=== PATIENT | male | born 1955 | race Caucasian/White ===

== ENCOUNTER 2019-09-18 12:20 | Emergency (ER) | payer BC ==
--- NOTE | 2019-09-18 12:31 | EDM.PDOC ---
ED HPI GENERAL MEDICAL PROBLEM - General Chief Complaint: Head Injury Stated Complaint: LOSS OF CON/ FELL DOWN STEPS Time Seen by Provider: 09/18/19 12:26 Source of Information: Reports: Patient, EMS History Limitations: Reports: No Limitations - History of Present Illness INITIAL COMMENTS - FREE TEXT/NARRATIVE: Patient tripped while walking down stairs at the [employer] [place], he fell forward down @10 steps. Patient was unresponsive for @2 minutes. He complains of mild headache. Denies neck pain, chest pain, shortness of breath, or abdominal pain. Onset: Today Duration: Hour(s): (1) Location: Reports: Head Severity: Mild Head Pain Score (Numeric/FACES): 1 - Related Data Allergies Allergy/AdvReac Type Severity Reaction Status Date / Time No Known Allergies Allergy Verified 09/18/19 12:31 Home Meds: Home Meds NK [No Known Home Meds] 09/18/19 [History] Past Medical History - Past Health History Medical/Surgical History: Denies Medical/Surgical History Social & Family History - Tobacco Use Tobacco Use Within Last Twelve Months: No - Alcohol Use Alcohol Use History: No - Recreational Drug Use Recreational Drug Use: No ED ROS GENERAL - Review of Systems Review Of Systems: Comprehensive ROS is negative, except as noted in HPI. HEENT: Reports: Ear Pain (left (intermittent x 1 month)) ED EXAM, HEAD INJURY - Physical Exam Exam: See Below Exam Limited By: No Limitations General Appearance: Alert, WD/WN, No Apparent Distress Head: Normocephalic, Scalp Swelling (right parietal), Scalp Abrasions (right parietal) Eyes: Bilateral Eye: EOMI, PERRL Ears: Normal External Exam, Normal TMs Nose: Normal Inspection Throat/Mouth: No Airway Compromise Neck: Non-Tender, Full Range of Motion Respiratory: No Respiratory Distress, Lungs Clear, Normal Breath Sounds, Chest Non-Tender Cardiovascular: Regular Rate, Rhythm, No Murmur GI/Abdominal Exam: Soft, Non-Tender, No Distention Back Exam: Full Range of Motion Extremities: Normal Range of Motion Neurologic: No Motor/Sensory Deficits, Alert, Normal Mood/Affect, Oriented x 3 Skin: Other (right parietal scalp) - [place] Coma Score Best Eye Response ([place]): (4) Open Spontaneously Best Verbal Response ([place]): (5) Oriented Best Motor Response (Janee): (6) Obeys Commands Janee Total: 15 Course - Vital Signs Last Recorded V/S: Last Vital Signs Temp 36.7 C 09/18/19 13:02 Pulse 73 09/18/19 12:37 Resp 16 09/18/19 12:37 BP 131/81 09/18/19 12:37 Pulse Ox 95 09/18/19 12:37 - Orders/Labs/Meds Orders: Active Orders 24 hr Category Date Time Status Vaccines to be Administered [RC] PER UNIT ROUTINE Care 09/18/19 12:43 Active Cervical Spine wo Cont [CT] Stat Exams 09/18/19 12:25 Taken Head wo Cont [CT] Stat Exams 09/18/19 12:24 Taken Meds: Medications Discontinued Medications Generic Name Dose Route Start Last Admin Trade Name Freq PRN Reason Stop Dose Admin Diphtheria/Tetanus/Acell Pertussis 0.5 ml 09/18/19 12:43 09/18/19 12:56 Adacel IM 09/18/19 12:44 0.5 ml .ONCE ONE Administration - Radiology Interpretation Free Text/Narrative:: CT Head w/o contrast: No evidence of acute infarction, intracranial hemorrhage, or mass-effect seen. (Dr. Mariajose STEEL) CT C-spine w/o contrast: No acute osseous injuries are identified. (Dr. Mariajose STEEL) Departure - Departure Time of Disposition: 13:00 Disposition: Home, Self-Care 01 Condition: Good Clinical Impression: Scalp abrasion, non-infected Minor head injury with loss of consciousness Qualifiers: Encounter type: initial encounter Qualified Code(s): S06.9X9A - Unspecified intracranial injury with loss of consciousness of unspecified duration, initial encounter - Discharge Information *PRESCRIPTION DRUG MONITORING PROGRAM REVIEWED*: No *COPY OF PRESCRIPTION DRUG MONITORING REPORT IN PATIENT AMELIA: Not Applicable Instructions: Head Injury, Adult, [id number], Abrasion, [id number] Referrals: PCP,None [Ordering Only Provider] - Forms: ED Department Discharge Additional Instructions: Rest. Take Tylenol as needed. Return to the ER if symptoms worsen. Sepsis Event Note - Focused Exam Vital Signs: Vital Signs Temp Pulse Resp BP Pulse Ox 09/18/19 13:02 36.7 C 09/18/19 12:37 73 16 131/81 95 Date Exam was Performed: 09/18/19 Time Exam was Performed: 13:04 - My Orders Last 24 Hours: My Active Orders 09/18/19 12:24 Head wo Cont [CT] Stat 09/18/19 12:25 Cervical Spine wo Cont [CT] Stat 09/18/19 12:43 Vaccines to be Administered [RC] PER UNIT ROUTINE - Assessment/Plan Last 24 Hours: My Active Orders 09/18/19 12:24 Head wo Cont [CT] Stat 09/18/19 12:25 Cervical Spine wo Cont [CT] Stat 09/18/19 12:43 Vaccines to be Administered [RC] PER UNIT ROUTINE
[2019-09-18] MEDS ORDERED: Diphtheria,Pertussis(Acell),Tetanus Vaccine 0.5 ML SDV IM ONE (12:43)
== END 2019-09-18 13:15 | disposition home or self-care (01) ==
LOC: FB.ED 12:20
DX: S06.9X9A Unspecified intracranial injury with loss of consciousness of unspecified duration, initial encounter (principal); S00.01XA Abrasion of scalp, initial encounter; Z23 Encounter for immunization; W10.9XXA Fall (on) (from) unspecified stairs and steps, initial encounter; Y93.01 Activity, walking, marching and hiking; Y92.89 Other specified places as the place of occurrence of the external cause
CPT/HCPCS: 70450; 72125; 90471; 90715; 99284-25